=== PATIENT | female | born 2000 | race Caucasian/White ===

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

== ENCOUNTER 2020-04-17 00:46 | Emergency (ER) | payer OTHER ==
[2020-04-17] MEDS ORDERED: NORMAL SALINE 1000 ML 1,000 ML IV ONE (02:49)
--- NOTE | 2020-04-17 02:51 | ER Document Report ---
ED General - General Chief Complaint: Fever Stated Complaint: FEVER, ABDOMINAL PAIN 8 WKS PREG, SORE THROAT Time Seen by Provider: 04/17/20 02:29 Primary Care Provider: WATSON CARRERA DO [Primary Care Provider] - Follow up as needed Notes: Patient is a 19-year-old female, G3, P1 at 8 weeks gestation by last menstrual period, comes emergency department with 2 complaints. First complaint is fever, body aches, and lower abdominal pain that started over the past day. Second complaint is sore throat and patient also has had some congestion and postnasal drip over the past day. She denies cough, shortness of breath, chest pain, flank pain, dysuria, vaginal bleeding or discharge. She denies any daily medications except vitamins, she has a follow-up appointment scheduled for [facility] but has not seen [facility] for this yet. - Related Data Allergies/Adverse Reactions: No Known Allergies Allergy (Verified 04/25/18 13:12) Past Medical History - General Information source: Patient - Social History Smoking Status: Never Smoker Chew tobacco use (# tins/day): No Frequency of alcohol use: None Drug Abuse: None Lives with: Family Family History: Reviewed & Not Pertinent Patient has homicidal ideation: No Renal/ Medical History: Denies: Hx Peritoneal Dialysis Musculoskeletal Medical History: Reports Hx Arthritis - Juvenile rheumatoid arthritis - Immunizations Immunizations up to date: Yes Hx Diphtheria, Pertussis, Tetanus Vaccination: Yes Review of Systems - Review of Systems Constitutional: See HPI EENT: See HPI Cardiovascular: No symptoms reported Respiratory: No symptoms reported Gastrointestinal: See HPI Genitourinary: No symptoms reported Female Genitourinary: See HPI Musculoskeletal: No symptoms reported Skin: No symptoms reported Hematologic/Lymphatic: No symptoms reported Neurological/Psychological: No symptoms reported Physical Exam - Vital signs Vitals: Temp Pulse Resp BP Pulse Ox 98.2 F 113 H 20 117/72 99 04/17/20 00:57 04/17/20 00:57 04/17/20 00:57 04/17/20 00:57 04/17/20 00:57 - Notes Notes: GENERAL: Alert, interacts well. No acute distress. HEAD: Normocephalic, atraumatic. EYES: Pupils equal, round, and reactive to light. Extraocular movements intact. ENT: Oral mucosa moist, tongue midline. There is mild tonsillitis but tonsils are erythematous, there are small amount of exudates present, there is no evidence of peritonsillar abscess, uvula is normal, airway patent. Nares patent, sinuses non-tender, ear canals unremarkable, TM's intact. NECK: Full range of motion. Supple. Trachea midline. No lymphadenopathy. LUNGS: Clear to auscultation bilaterally, no wheezes, rales, or rhonchi. No respiratory distress. Non-tender chest wall. HEART: Regular rate and rhythm. No murmur ABDOMEN: Soft, non-tender. Non-distended. EXTREMITIES: Moves all 4 extremities spontaneously. No edema, normal radial and dorsalis pedis pulses bilaterally. No cyanosis. BACK: no cervical, thoracic, lumbar midline tenderness. No saddle anesthesia, normal distal neurovascular exam. Moves all extremities in full range of motion. NEUROLOGICAL: Alert and oriented x3. Normal speech. Cranial nerves II through XII grossly intact. Strength 5/5 in all extremities. PSYCH: Normal affect, normal mood. SKIN: Warm, dry, normal turgor. No rashes or lesions noted. Course - Re-evaluation Re-evalutation: Patient does have exudative pharyngitis on exam but there is no abscess, there is only very mild anterior cervical adenopathy, patient tolerates p.o. fluids without any difficulty. She also has very mild nasal congestion. No cough, clear lungs, soft benign abdomen although patient is complaining of abdominal pain. Ultrasound confirms intrauterine with no noted complications. CBC shows mild leukocytosis, strep is negative. Chemistry unremarkable. Urinalysis nonspecific. Culture placed. Patient has not had a fever here. She was given IV fluids here and after this her tachycardia did resolve. Patient is smiling and well-appearing on reevaluation. I discussed her work-up in detail. Patient is requesting COVID-19 testing and this was performed. Patient already has [facility] follow-up established with [facility], discussed expectations, follow-up, return precautions. Patient states understanding and agreement with plan. Stable and well-appearing at time of discharge. - Vital Signs Vital signs: Temp Pulse Resp BP Pulse Ox 99.3 F 100 18 127/76 H 100 04/17/20 06:39 04/17/20 06:39 04/17/20 06:39 04/17/20 06:39 04/17/20 06:39 - Laboratory Result Diagrams: 04/17/20 03:13 04/17/20 03:13 Laboratory results interpreted by me: 04/17/20 04/17/20 04/17/20 03:13 03:13 03:13 WBC 11.1 H MCH 26.2 L RDW 15.9 H Lymph % (Auto) 11.0 L Absolute Neuts (auto) 8.9 H Seg Neutrophils % 80.4 H Sodium 135.3 L Beta HCG, Quant 629303.00 H Urine Ketones 80 H Discharge - Discharge Clinical Impression: Abdominal cramping affecting Fever Qualifiers: Fever type: unspecified Qualified Code(s): R50.9 - Fever, unspecified Pharyngitis Qualifiers: Pharyngitis/tonsillitis etiology: unspecified etiology Qualified Code(s): J02.9 - Acute pharyngitis, unspecified Condition: Stable Disposition: HOME, SELF-CARE Additional Instructions: Your work-up does not show any obvious concerning abnormality. You have a living in the uterus at 7 weeks and 2 days. I suspect that you have a viral illness, you have been tested for COVID-19, please quarantine, we will contact you with your results. Take Tylenol for fever, drink plenty of fluids and rest. Follow-up closely with your [facility] for additional management. Return if you worsen including difficulty breathing, spiking fevers, vomiting, severe worsening abdominal pain, or any other concerning or worsening symptoms. As a person under investigation for COVID-19, the [place] Department of Health and Human Services (division on public health) advises you to adhere to the following guidance until your test results are reported to you. If your test result is positive, you will receive additional information from your provider and your local health department at that time. Remain at home until you are cleared by the health provider or public health authorities. Keep a log of visitors to your home, notify any visitors to your home of your isolation status. If you plan to move to a new address or leave the county, notify the local health department in your County. Call your Doctor or seek care if you have an urgent medical need. Before seeking medical care, call him to get instructions from the provider before arriving at the medical office, clinic, or hospital. Notify them that you are being tested for the virus (COVID-19) so that arrangements can be made, as necessary, to prevent transmission to others in the healthcare setting. Next, notify the local health department in your county. If a medical emergency arises and you need to call 911, inform the first responders that you are being tested for the virus that causes COVID-19. Next, notify the local health department in your county. Referrals: WATSON CARRERA, DO [Primary Care Provider] - Follow up as needed
[2020-04-17 03:31] LABS: ABSOLUTE EOSINOPHILS # (AUTO) 0.1 10^3/uL (0.0-0.6); ABSOLUTE LYMPHOCYTES (AUTO) 1.2 10^3/uL (0.5-4.7); ABSOLUTE MONOCYTES (AUTO) 0.8 10^3/uL (0.1-1.4); ABSOLUTE NEUT (AUTO) 8.9 10^3/uL (1.7-8.2); BASOPHILS % (AUTO) 0.4 % (0-2); EOSINOPHILS % (AUTO) 1.1 % (0-6); HEMATOCRIT 42.1 % (36.0-47.0); HEMOGLOBIN 13.8 g/dL (12.0-15.5); MEAN CORPUSCULAR HEMOGLOBIN 26.2 pg (27.0-33.4); MEAN CORPUSCULAR HGB CONC 32.7 g/dL (32.0-36.0); MEAN CORPUSCULAR VOLUME 80 fl (80-97); MONOCYTES % (AUTO) 7.1 % (3-13); PLATELET COUNT 250 10^3/uL (150-450); RED BLOOD COUNT 5.25 10^6/uL (3.72-5.28); RED CELL DISTRIBUTION WIDTH 15.9 % (11.5-14.0); SEGMENTED NEUTROPHILS % (AUTO) 80.4 % (42-78); TOTAL CELLS COUNTED % (AUTO) 100 %; WHITE BLOOD COUNT 11.1 10^3/uL (4.0-10.5)
[2020-04-17 03:35] LABS: APPEARANCE,URINE SLIGHTLY-CLOUDY; BILIRUBIN,URINE NEGATIVE (NEGATIVE); COLOR,URINE YELLOW; GLUCOSE, URINE NEGATIVE (NEGATIVE); KETONES,URINE 80 mg/dL (NEGATIVE); LEUKOCYTE ESTERASE,URINE NEGATIVE (NEGATIVE); NITRITE,URINE NEGATIVE (NEGATIVE); PROTEIN,URINE NEGATIVE (NEGATIVE); URINE SPECIFIC GRAVITY 1.024; UROBILINOGEN,URINE NEGATIVE mg/dL (<2.0)
[2020-04-17 04:11] LABS: ALBUMIN 4.1 g/dL (3.5-5.0); ALKALINE PHOSPHATASE 75 U/L (38-126); ANION GAP 7 (5-19); ASPARTATE AMINO TRANSFERASE 17 U/L (14-36); BILIRUBIN,TOTAL 0.9 mg/dL (0.2-1.3); BLOOD UREA NITROGEN 7 mg/dL (7-20); CARBON DIOXIDE 22 mmol/L (22-30); CHLORIDE 106 mmol/L (98-107); GLUCOSE 88 mg/dL (75-110); POTASSIUM 3.8 mmol/L (3.6-5.0); TOTAL PROTEIN 7.3 g/dL (6.3-8.2)
--- NOTE | 2020-04-17 05:48 | RADIOLOGY REPORT (SQ) ---
FIRST TRIMESTER OBSTETRIC ULTRASOUND: 04/17/2020 4:46 AM CDT COMPARISON: None available HISTORY: 19-year old patient with lower abdominal pain. TECHNIQUE: Multiple ross scale and color Doppler images of the pelvis were obtained transabdominally. FINDINGS: The uterus measures 7.9 x 5.8 x 5.8 cm. A single gestational sac is seen within the uterus. The sac contains both a yolk sac and an embryo. The crown-rump length measures 1.12 cm corresponding to 7 weeks and 2 day(s). Cardiac motion is present with a heart rate of 157 bpm. No perigestational hemorrhage is seen. The cervix measures 2.7 cm in length. The right and left ovaries are normal in size and sonographic appearance. The right ovary measures 2.9 x 1.9 x 1.7 cm. The left ovary measures 4.4 x 2.3 x 2.2 cm. Arterial and venous waveforms are obtained from both ovaries. No free fluid is seen in the cul-de-sac. IMPRESSION: Single live intrauterine at 7 weeks and 2 day(s) consistent with an estimated due date of 12/02/2020. Obstetric follow up for routine care should be performed.
[2020-04-17 06:40] VITALS: BP 127/76
== END 2020-04-17 06:41 | disposition home or self-care (01) ==
LOC: ER 00:46
DX: O26.891 Other specified pregnancy related conditions, first trimester (principal); R50.9 Fever, unspecified; J02.9 Acute pharyngitis, unspecified; R10.30 Lower abdominal pain, unspecified; R09.82 Postnasal drip; Z3A.01 Less than 8 weeks gestation of pregnancy; Z20.828 Contact with and (suspected) exposure to other viral communicable diseases; R59.0 Localized enlarged lymph nodes; D72.829 Elevated white blood cell count, unspecified; M08.00 Unspecified juvenile rheumatoid arthritis of unspecified site
CPT/HCPCS: 99284; 96360; 86900; 86901; 36415; 87070; 87086; 87880; 84702; 85025; 87635; 80053; 81001; 76801; 93976; J7030; C9803